=== PATIENT | female | born 1975 | race Two or more races ===

== ENCOUNTER 2019-01-26 08:15 | Day surgery (SDC) | payer MEDICAID ==
[~2019-01-26] VITALS: Ht 170.2 cm; Wt 92.5 kg
[~2019-01-26 08:15] MED LIST: CHOL20009 PO; CYPR4TAB50 PO
[2019-01-26] MEDS ORDERED: ceFAZolin 1GM/50ML 50 ML IV ONE (09:28)
[2019-01-26] MEDS ORDERED: SUCCINYLCHOLINE CHLORIDE 20 MG/ML 10ML VIAL IV ONE (10:29)
[2019-01-26] MEDS ORDERED: PROPOFOL 10 MG/ML 20 ML IV ONE (10:29)
[2019-01-26] MEDS ORDERED: MEPERIDINE HCL (25 MG/ML) 1ML VIAL ONE (10:38)
[2019-01-26] MEDS ORDERED: MIDAZOLAM HCL 1MG/1ML-2 ML VIAL ONE (10:38)
[2019-01-26] MEDS ORDERED: ONDANSETRON HCL 4 MG/2 ML VIAL ONE (10:38)
[2019-01-26] MEDS ORDERED: DexAMETHasone SOD PHOS 10MG/1ML VIAL INJ ONE (10:38)
[2019-01-26] MEDS ORDERED: LACTATED RINGER'S 1,000 ML IV SCH (11:31)
[2019-01-26] MEDS ORDERED: ONDANSETRON HCL 4 MG/2 ML VIAL IV PRN (11:45)
[2019-01-26] MEDS ORDERED: HYDROmorphone HCL 2 MG/ML VL IV PRN (11:45)
[2019-01-26 12:21] VITALS: BP 106/56
== END 2019-01-26 12:34 | disposition home or self-care (01) ==
LOC: SUR 08:15
PROVIDERS: ATTEND Specialist
DX: N92.1 Excessive and frequent menstruation with irregular cycle (principal); N84.1 Polyp of cervix uteri; D64.9 Anemia, unspecified; Z98.890 Other specified postprocedural states
CPT/HCPCS: 58558; 86850; 86900; 86901; J0330; J0690; J1100; J2175; J2250; J2405; J2704; J7030